=== PATIENT | female | born 1950 | race Caucasian/White ===

== ENCOUNTER 2017-05-19 14:13 | Emergency (ER) | payer MEDICARE ==
[~2017-05-19] VITALS: Ht 162.6 cm; Wt 54.0 kg
[~2017-05-19 14:13] MED LIST: Norco 5-325 Ta1 EACH PO
[2017-05-19] MEDS ORDERED: Norco 5-325 Ta1 EACH PO (15:04)
== END 2017-05-19 15:08 | disposition home or self-care (01) ==
LOC: ER 14:13
DX: S39.91XA Unspecified injury of abdomen, initial encounter (principal); Z87.891 Personal history of nicotine dependence; W01.0XXA Fall on same level from slipping, tripping and stumbling without subsequent striking against object, initial encounter
CPT/HCPCS: 72170; 99283

== ENCOUNTER 2021-04-20 13:01 | Day surgery (SDC) | payer MEDICARE ==
[~2021-04-20] VITALS: Ht 154.9 cm; Wt 58.6 kg
[2021-04-20] MEDS ORDERED: XARELTO20 MG PO (13:25)
[2021-04-20] MEDS ORDERED: METO50ER PO (13:25)
[2021-04-20] MEDS ORDERED: ALEN70 PO (13:26)
== END 2021-04-20 15:50 | disposition home or self-care (01) ==
LOC: ORSCSDS 13:01
PROVIDERS: Student in an Organized Health Care Education/Training Program
PROC: 0DBN8ZX Excision of Sigmoid Colon, Via Natural or Artificial Opening Endoscopic, Diagnostic (ICD-10-PCS; principal; 2021-04-20 14:15)
PROC: 0DBL8ZX Excision of Transverse Colon, Via Natural or Artificial Opening Endoscopic, Diagnostic (ICD-10-PCS; principal; 2021-04-20 14:15)
PROC: 0DBK8ZX Excision of Ascending Colon, Via Natural or Artificial Opening Endoscopic, Diagnostic (ICD-10-PCS; principal; 2021-04-20 14:15)
PROC: 0DBH8ZX Excision of Cecum, Via Natural or Artificial Opening Endoscopic, Diagnostic (ICD-10-PCS; principal; 2021-04-20 14:15)
PROC: 0DBP8ZX Excision of Rectum, Via Natural or Artificial Opening Endoscopic, Diagnostic (ICD-10-PCS; principal; 2021-04-20 14:15)
DX: R19.5 Other fecal abnormalities (principal); D12.0 Benign neoplasm of cecum; D12.3 Benign neoplasm of transverse colon; D12.2 Benign neoplasm of ascending colon; D12.5 Benign neoplasm of sigmoid colon; D12.8 Benign neoplasm of rectum; K57.30 Diverticulosis of large intestine without perforation or abscess without bleeding; Z79.899 Other long term (current) drug therapy; Z79.82 Long term (current) use of aspirin
CPT/HCPCS: 87426; 88305; C9803; J2405; J2704; J7120

== ENCOUNTER 2023-02-22 10:57 | Day surgery (SDC) | payer MEDICARE ==
[~2023-02-22] VITALS: Ht 154.9 cm; Wt 54.2 kg
[2023-02-22] VITALS (10 sets, daily range): BP systolic 98–165; BP diastolic 58–85
[~2023-02-22 10:57] MED LIST changes: +ALEN70 PO; +METO50ER PO; +METOPROLOL SUCC25 MG PO; +PROTONIX40 M2 PO; +Robaxin750 MG PO; +Roxicodone5 MG PO; +XARELTO20 M1 PO; +XARELTO20 MG PO
--- NOTE | 2023-02-22 11:20 | NUR ---
PT TO DAY SURGERY FOR RIGHT HIP REPLACEMENT. PLAN OF CARE DISCUSSED. PT HERE WITH AT BEDSIDE.
--- NOTE | 2023-02-22 13:41 | NUR ---
PRE-OP NOTE SBAR FROM KARL REHMAN. PT USED BEDSIDE COMMODE C ASSISTANCE, ABLE TO URINATE AT 12:40. PT AT BEDSIDE. GLASSES TO PACU, BELONGINGS STOWED BELOW STRETCHER.Patient confirms NPO status and agrees with scheduled surgery.PT UNABLE TO TOLERATE AMBULATION 2/2 R HIP PAIN. Pre-Op teaching done. Pt verbalizes understanding.PT USES WALKER/WHEELCHAIR AT HOME.
--- NOTE | 2023-02-22 17:20 | NUR ---
ARRIVAL TO SURGICAL UNIT ALERT, ORIENTED, & PLEASANT. ASSESSMENT CHARTED. FAMILY AT BEDSIDE. DENIES N/V. ICE WATER & SNACKS GIVEN. DUE TO SPINAL UNABLE TO WIGGLE TOES.
[2023-02-23 00:02] VITALS: BP 120/72
[2023-02-23 04:03] VITALS: BP 118/67
[2023-02-23 05:20] LABS: BASOPHILS ABSOLUTE AUTO 0.01 K/mm3 (0.00-0.23); BASOPHILS PERCENT AUTO 0 % (0-2); EOSINOPHILS PERCENT AUTO 0 % (0-6); Hematocrit 29.5 % (33.0-51.0); Hemoglobin 9.9 g/dL (11.5-16.0); IMMATURE GRAN ABSOLUTE AUTO 0.03 K/mm3 (0.00-0.10); IMMATURE GRAN PERCENT AUTO 0 % (0-1); LYMPHOCYTES ABSOLUTE AUTO 0.38 K/mm3 (0.84-5.20); LYMPHOCYTES PERCENT AUTO 4 % (21-46); MONOCYTES ABSOLUTE AUTO 0.57 K/mm3 (0.16-1.47); MONOCYTES PERCENT AUTO 6 % (4-13); Mean Corpuscular HGB 31.9 pg (26.0-34.0); Mean Corpuscular HGB Conc 33.6 g/dL (31.5-36.5); Mean Corpuscular Volume 95 fL (80-100); Mean Platelet Volume 8.7 fL (9.1-12.4); NEUTROPHILS ABSOLUTE AUTO 8.45 K/mm3 (1.96-9.15); NEUTROPHILS PERCENT AUTO 90 % (41-73); Platelet Count 307 K/mm3 (150-400); RDW Coefficient Variation 13.2 % (11.7-14.2); White Blood Cell Count 9.44 K/mm3 (4.00-11.30)
[2023-02-23 05:43] LABS: Bun/Creatinine Ratio 19.2 (12.0-20.0); Calcium, Blood 8.7 mg/dL (8.5-10.1); Creatinine, Blood 0.68 mg/dL (0.40-1.00); Magnesium, Blood 1.9 mg/dL (1.6-2.4); Potassium, Blood 4.4 mmol/L (3.5-5.5)
[2023-02-23 07:29] VITALS: BP 117/68
--- NOTE | 2023-02-23 07:41 | NUR ---
POD 1 S/P R AKSHAT. PT VSS T/O NIGHT. DRESSING CDI, CHANGED MY DR KNIGHT THIS AM. PULSES AND CAP REFILL WNL, N/T RESOLVED. PAIN MGD PER EMAR W/REP RELIEF. PT MARYANNE PO, IS VOIDING URINE W/O DIFFICULTY. PT UP OOB W/FWW+1 ASSIST. PLAN TO MOBILIZE W/PT AND DC HOME WHEN CLEARED.
--- NOTE | 2023-02-23 11:36 | NUR ---
DISCHARGE SUMMARY POD1 R POSTERIOR AKSHAT, A/OX4, VSS, TOLERATING PO, PAIN WELL MANAGED, AMBULATING WELL WITH FWW/GB, INCISION DRESSINGS CHANGED THIS MORNING JUST BEFORE SHIFT CHANGE BY SURGEON, AQUACELLS PLACED X2 WHICH ARE STILL C/D/I, PROVIDED HER WITH 3 EXTRA DRESSINGS FOR EACH SPOT FOR CHANGING BETWEEN NOW AND HER FOLLOW UP. NO SWELLING NOTED AROUND HER DRESSINGS, CIRCULATION DISTAL RLE INTACT WITH STRONG PULSE AT DORSALIS PEDIS, GRADUATED COMPRESSION STOCKINGS IN PLACE BLE. DISCUSSED DISCHARGE INSTRUCTIONS WITH HER AND HER INCLUDING HOME CARE, MEDICATIONS, AND FOLLOW UP APPOINTMENTS. IV ACCESS REMOVED PRIOR TO DC. PT ESCORTED OUT VIA WC TO PRIVATE AUTO TO GO HOME.
--- NOTE | 2023-02-23 14:33 | NUR ---
02/23/23 1433 Kaley Cabrera VERIFICATIONS: EDIT CHART.
== END 2023-02-23 11:18 | disposition home or self-care (01) ==
LOC: ORSCMMR 10:57 → ORD 14:30 → ORSCMMR 14:30 → SURS 16:56 → ORSCMMR 02-23 11:18
PROVIDERS: Orthopaedic Surgery
PROC: 0LQJ0ZZ Repair Right Hip Tendon, Open Approach (ICD-10-PCS; principal; 2023-02-22 14:30)
PROC: 0SR90JA Replacement of Right Hip Joint with Synthetic Substitute, Uncemented, Open Approach (ICD-10-PCS; principal; 2023-02-22 14:30)
DX: M16.11 Unilateral primary osteoarthritis, right hip (principal); M87.9 Osteonecrosis, unspecified; S76.011A Strain of muscle, fascia and tendon of right hip, initial encounter; I48.92 Unspecified atrial flutter; Z79.01 Long term (current) use of anticoagulants; E78.5 Hyperlipidemia, unspecified; Z79.899 Other long term (current) drug therapy
CPT/HCPCS: 36415; 72170; 80048; 83735; 85025; 88304; 88311; 97110; 97116; 97162; 97165; 97535; A9270; C1713; C1776; J0171; J0690; J0735; J1100; J1885; J2371; J2405; J2704; J2795; J3010; J3370; J7120

== ENCOUNTER 2024-12-04 16:33 | Inpatient (IN) | payer OTHER ==
[~2024-12-04] VITALS: Ht 165.1 cm; Wt 60.2 kg
[~2024-12-04 16:33] MED LIST changes: -BACLOFEN5 M1 PO; -FURO40 PO; -PEPCID20 MG PO; -POTA20LUD PO
[2024-12-04 17:16] LABS: BASOPHILS ABSOLUTE AUTO 0.02 K/mm3 (0.00-0.23); BASOPHILS PERCENT AUTO 0 % (0-2); EOSINOPHILS ABSOLUTE AUTO 0.01 K/mm3 (0.00-0.68); EOSINOPHILS PERCENT AUTO 0 % (0-6); Hematocrit 27.2 % (33.0-51.0); Hemoglobin 9.5 g/dL (11.5-16.0); IMMATURE GRAN ABSOLUTE AUTO 0.02 K/mm3 (0.00-0.10); IMMATURE GRAN PERCENT AUTO 0 % (0-1); LYMPHOCYTES ABSOLUTE AUTO 0.55 K/mm3 (0.84-5.20); LYMPHOCYTES PERCENT AUTO 8 % (21-46); MONOCYTES ABSOLUTE AUTO 0.65 K/mm3 (0.16-1.47); MONOCYTES PERCENT AUTO 10 % (4-13); Mean Corpuscular HGB Conc 34.9 g/dL (31.5-36.5); Mean Corpuscular Volume 99 fL (80-100); NEUTROPHILS ABSOLUTE AUTO 5.26 K/mm3 (1.96-9.15); NEUTROPHILS PERCENT AUTO 81 % (41-73); NRBC ABSOLUTE 0.00 K/mm3 (0.00-0.02); NRBC Auto 0.0 /100 WBC (0.0-0.2); Platelet Count 189 K/mm3 (150-400); RDW Coefficient Variation 13.3 % (11.7-14.2); RDW Standard Deviation 46.8 fL (35.1-46.3)
[2024-12-04 18:01] LABS: Alanine Aminotransfer (ALT/SGP 40.0 U/L (12-78); Albumin, Blood 3.6 g/dL (3.4-5.0); Albumin/Globulin Ratio 1.4 (0.8-1.8); Anion Gap 8.0 mmol/L (3-11); Aspartate Aminotrans (AST/SGOT 76.0 U/L (12-37); Bilirubin, Total 1.3 mg/dL (0.1-1.0); Blood Urea Nitrogen 14.0 mg/dL (8-24); CO2, Blood 24.0 mmol/L (21-32); Calcium, Blood 8.8 mg/dL (8.5-10.1); Chloride, Blood 88.0 mmol/L (98-108); Creatinine, Blood 0.56 mg/dL (0.40-1.00); Globulin, Blood 2.6 g/dL (2.2-4.0); Glucose, Blood 124.0 mg/dL (70-99); Potassium, Blood 4.2 mmol/L (3.5-5.5); Sodium, Blood 116.0 mmol/L (136-145); Total Protein, Blood 6.2 g/dL (6.4-8.2)
[2024-12-04] MEDS ORDERED: Morphine Sulfate 4 MG/1 ML Injection IV ONE ×2 (18:15→19:40)
[2024-12-04] MEDS ORDERED: Ondansetron HCl 2 MG / ML 2ML Vial IV PRN (20:45)
[2024-12-04] MEDS ORDERED: Metoprolol Tartrate 1 MG/ML 5 ML VIAL IV PRN (20:55)
[2024-12-04 21:32] LABS: Osmolality, Serum 256.0 mos/KG (275-300)
[2024-12-04 21:38] LABS: Thyroid Stimulating Hormone 6.82 uIU/mL (0.360-4.800)
[2024-12-04 22:00] VITALS: BP 128/98
--- NOTE | 2024-12-04 22:00 | NUR ---
PT ARRIVED FROM ED VIA GURNEY IN NO APPARENT DISTRESS. TRANSFERRED TO ICU 6 BED WITHOUT INCIDENT. HYPERTONIC SALINE INFUSING AT 25ML/HR WHICH WAS STOPPED AT 2250 AFTER A SODIUM LEVEL OF 21 CAME BACK. SALINE LOCKED AFTER. PT IS ALERT AND ORIENTED TO ALL AND MOVES ALL EXTREMITIES, THOUGH WITH PAIN IN LEFT LEG, WHICH SHOWS A MASSIVE HEMATOMA FROM ANKLE TO JUST ABOVE THE KNEE. PT C/O LEG CRAMPING, WHICH HAS BEEN A WORSENING ISSUE FOR OVER A MONTH. 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 PT RESPONDED WELL TO MORPHINE IN THE ED AND PROVIDER CALLED AND ORDER PLACED FOR PRN MORPHINE. PT IN A FIB, RATE 90-110 WITH STABLE BP. RESPIRATION REGULAR AND WITHOUT EXTRA EFFORT. ON RA PT PRODUCING > 92% O2 SAT. WHEN ASLEEP, PT DESATURATES INTO 80'S AND SO PT STARTED ON 2L NC. PT DENIES CHEST PAIN/PRESSURE, SOB, AB PAIN, N/V, NUMBNESS/TINGLING. PT URINATED INTO BRIEF AFTER BEING INITIALLY CONFUSED BUT PUREWICK, BUT PUREWICK PLACED AFTER THIS. WILL CONTINUE TO MONITOR SODIUM LEVELS WITH Q 3 HOUR DRAWS.
[2024-12-04 22:04] LABS: Influenza A, PCR NEGATIVE (NEGATIVE); Influenza B, PCR NEGATIVE (NEGATIVE); Resp Syncytial Virus, PCR NEGATIVE (NEGATIVE); SARS-Cov-2 (COVID-19) PCR, MMC NEGATIVE (NEGATIVE)
[2024-12-04] MEDS ORDERED: Morphine Sulfate 4 MG/1 ML Injection IV PRN (23:05)
--- NOTE | 2024-12-04 23:08 | NUR ---
CALL TO HOSPITALIST DARRICK DANIEL REGARDING CRAMPING TO LEGS. REVIEWED NA LEVEL. ORDERS FOR MORPHINE AND TO STOP 3% SALINE RECEIVED.
[2024-12-05] VITALS (19 sets, daily range): BP systolic 70–131; BP diastolic 51–103
[2024-12-05 03:28] LABS: BASOPHILS ABSOLUTE AUTO 0.01 K/mm3 (0.00-0.23); BASOPHILS PERCENT AUTO 0 % (0-2); EOSINOPHILS ABSOLUTE AUTO 0.02 K/mm3 (0.00-0.68); EOSINOPHILS PERCENT AUTO 0 % (0-6); Hematocrit 24.5 % (33.0-51.0); Hemoglobin 8.6 g/dL (11.5-16.0); IMMATURE GRAN ABSOLUTE AUTO 0.01 K/mm3 (0.00-0.10); IMMATURE GRAN PERCENT AUTO 0 % (0-1); LYMPHOCYTES ABSOLUTE AUTO 0.54 K/mm3 (0.84-5.20); LYMPHOCYTES PERCENT AUTO 9 % (21-46); MONOCYTES ABSOLUTE AUTO 0.45 K/mm3 (0.16-1.47); MONOCYTES PERCENT AUTO 7 % (4-13); Mean Corpuscular HGB Conc 35.1 g/dL (31.5-36.5); Mean Corpuscular Volume 98 fL (80-100); NEUTROPHILS ABSOLUTE AUTO 5.15 K/mm3 (1.96-9.15); NEUTROPHILS PERCENT AUTO 83 % (41-73); NRBC ABSOLUTE 0.00 K/mm3 (0.00-0.02); NRBC Auto 0.0 /100 WBC (0.0-0.2); Platelet Count 184 K/mm3 (150-400); RDW Coefficient Variation 13.4 % (11.7-14.2); RDW Standard Deviation 47.6 fL (35.1-46.3)
[2024-12-05 07:07] LABS: Anion Gap 13.0 mmol/L (3-11); Blood Urea Nitrogen 10.0 mg/dL (8-24); CO2, Blood 22.0 mmol/L (21-32); Calcium, Blood 7.4 mg/dL (8.5-10.1); Chloride, Blood 89.0 mmol/L (98-108); Creatinine, Blood 0.5 mg/dL (0.40-1.00); Glucose, Blood 103.0 mg/dL (70-99); Potassium, Blood 3.3 mmol/L (3.5-5.5); Sodium, Blood 121.0 mmol/L (136-145)
--- NOTE | 2024-12-05 08:09 | NUR ---
SHIFT SUMMARY PT LYING IN BED ALERT AND ORIENTED. PT CANNOT SEE WELL SINCE CONTACTS ARE OUT; DOES NOT WANT HELP REINSERTING THEM. AFEBRILE. LEG CRAMPS ARE BETTER, MILD AT THIS TIME. 1 DOSE OF MORPHINE GIVEN EARLY IN SHIFT. PT REMAINED IN CONTROLLED RATE A FIB, RATE 90-105, WITH STABLE BP. PT STARTED ON RA WITH > 92% UPON ADMISSION AND STARTED ON 2L WHEN SHE DESATURATED TO MID 80'S AFTER PAIN MED ADMINISTRATION/START OF SLEEP. PT DENIED CHEST PAIN/PRESSURE, SOB, AB PAIN, N/V AND CONTINUES TO AT THIS TIME. PUREWICK IN PLACE TO SUCTION WITH 1200ML OUTPUT PLUS ONE SOILED BRIEF. PT IS SALINE LOCKED. ANTI-EMBOLIC STOCKINGS ARE IN PLACE. BEDSIDE SHIFT REPORT GIVEN TO ONCOMING RN.
[2024-12-05] MEDS ORDERED: CefTRIAXone Sodium 1,000 MG in NS 100 ML IV SCH (10:00)
[2024-12-05 11:00] LABS: Source, Urine Voided
[2024-12-05 11:18] LABS: Bilirubin, Urine Neg (Neg); Color, Urine Yellow (P-Yellow); Glucose Qualitative, Urine Neg (Neg); Ketones, Urine Neg (Neg); Leukocyte Esterase, Urine 3+ (Neg); Protein, Urine 2+ (Neg); Specific Gravity, Urine 1.010 (1.003-1.022); Urobilinogen, Urine NORM (Normal)
[2024-12-05 11:34] LABS: Red Blood Cells, Urine 50-100 /hpf (0-2); White Blood Cells, Urine 25-50 /hpf (0-5)
[2024-12-05 12:20] LABS: Sodium, Urine, Random 77 mmol/L (20-110)
[2024-12-05 12:48] LABS: Osmolality, Urine 375 mos/kg (15-1400)
[2024-12-05 13:39] LABS: Anion Gap 11.0 mmol/L (3-11); Blood Urea Nitrogen 10.0 mg/dL (8-24); CO2, Blood 27.0 mmol/L (21-32); Calcium, Blood 8.0 mg/dL (8.5-10.1); Chloride, Blood 87.0 mmol/L (98-108); Creatinine, Blood 0.56 mg/dL (0.40-1.00); Glucose, Blood 119.0 mg/dL (70-99); Magnesium, Blood 1.8 mg/dL (1.6-2.4); Potassium, Blood 3.3 mmol/L (3.5-5.5); Sodium, Blood 122.0 mmol/L (136-145)
[2024-12-05 16:10] LABS: Anion Gap 11.0 mmol/L (3-11); Blood Urea Nitrogen 10.0 mg/dL (8-24); CO2, Blood 25.0 mmol/L (21-32); Calcium, Blood 7.9 mg/dL (8.5-10.1); Chloride, Blood 89.0 mmol/L (98-108); Creatinine, Blood 0.59 mg/dL (0.40-1.00); Glucose, Blood 114.0 mg/dL (70-99); Potassium, Blood 3.6 mmol/L (3.5-5.5); Sodium, Blood 121.0 mmol/L (136-145)
[2024-12-05] MEDS ORDERED: Misc. Tablet PO PRN (17:10)
--- NOTE | 2024-12-05 19:00 | NUR ---
SHIFT SUMMARY NEURO: ALERT AND ORIENTED X 4. ABLE TO MAKE HER NEEDS KNOWN. SOME DROWSINESS THIS AM AND AFTERNOON THAT HAS RESOLVED. DENIES ANY RODAS OR DIZZINESS CARDIAC: SR HR 70-90S. SBP: 90-110S. EDEMA PRESENT TO BLE. ECHO COMPELTED TODAY. PULM: LUNGS CLEAR TO AUSCULATION, SPO2 100% ON RA. GI: ABDOMEN IS SOFT, NON TENDER. NORMOACTIVE BOWEL TONES. : PUREWICK IN PLACE, GOOD UOP WITH DIURESIS. +FREQUENCY DENIES DYSURIA. 1 DOSE ROCEPHIN TODAY.
[2024-12-05 20:12] LABS: Anion Gap 10.0 mmol/L (3-11); Blood Urea Nitrogen 11.0 mg/dL (8-24); CO2, Blood 26.0 mmol/L (21-32); Calcium, Blood 8.1 mg/dL (8.5-10.1); Chloride, Blood 90.0 mmol/L (98-108); Creatinine, Blood 0.62 mg/dL (0.40-1.00); Glucose, Blood 135.0 mg/dL (70-99); Potassium, Blood 3.9 mmol/L (3.5-5.5); Sodium, Blood 122.0 mmol/L (136-145)
[2024-12-06] VITALS (35 sets, daily range): BP systolic 80–122; BP diastolic 52–90
[2024-12-06 04:14] LABS: Ferritin, Serum 109.0 ng/mL (8-252); Total Iron Binding Capacity 315.0 ug/dL (250-450)
[2024-12-06 04:19] LABS: Anion Gap 10.0 mmol/L (3-11); Blood Urea Nitrogen 12.0 mg/dL (8-24); CO2, Blood 27.0 mmol/L (21-32); Calcium, Blood 7.6 mg/dL (8.5-10.1); Chloride, Blood 91.0 mmol/L (98-108); Creatinine, Blood 0.7 mg/dL (0.40-1.00); Glucose, Blood 130.0 mg/dL (70-99); Potassium, Blood 3.8 mmol/L (3.5-5.5); Sodium, Blood 124.0 mmol/L (136-145)
--- NOTE | 2024-12-06 08:08 | NUR ---
SHIFT SUMMARY PT HAD UNEVENTFUL NIGHT. STARTED NIGHT ALERT AND ORIENTED BUT ENDED THE SHIFT MILDLY CONFUSED, THOUGH SHE WAS AWOKEN AND MOVED SUDDENLY DUE TO STAFFING ARRANGEMENTS. PT C/O LEG CRAMPING THROUGHOUT SHIFT THOUGH MORPHINE HELPED- ONE DOSE GIVEN ALL SHIFT. PT REMAINED IN CONTROLLED A FIB 80-100 RATE AND BP WAS STABLE TO SOFT FOR THE FIRST TIME SINCE ADMISSION. THIS RN NEVER FELT THE NEED TO ADDRESS THE BP AND THE MAP INCREASED QUICKLY UPON AWAKENING. PT O2 SATURATIONS REMAINED ABOVE 90% ALL SHIFT ON RA. PT DID NOT HAVE BM. PUREWICK WAS IN PLACE THOUGH OUTPUT WAS 120ML. PT DENIED CHEST PAIN/PRESSURE, SOB, AB PAIN, N/V THROUGHOUT SHIFT. BEDISIDE SHIFT REPORT GIVEN TO DAY RN. AFTER HANDING OVER PT, SON-IN-LAW PÉREZ CALLED THE UNIT AND THIS RN SPOKE WITH HIM, GIVING AN UPDATE AND INFORMING HIM OF THE PT'S MOVE TO A DIFFERENT ROOM IN THE UNIT. HE SAID HE WOULD INFORM THE PT'S .
--- NOTE | 2024-12-06 10:34 | NUR ---
Pt. is awake in bed and welcomes my visit. Pt. is pleasant. Spouse is at bedside. Facilitated a life review and listened with empathy and a calming presence. Pt. and spouse verbalize about htis family and their naz[place] tradition. Pt. displays evidence of ocassional somnolence during the visit. Prayed for the Pt. Spouse verbalized gratitude for the spiritual care visit.
--- NOTE | 2024-12-06 18:03 | NUR ---
End of Shift Pt PCU status. A&O x4. BP soft, otherwise VSS. Spo2 > 92% on RA. Monitor showing afib, HR 90s-110s. Pt 1 person assist out of bed to chair. Pt w/ significant LLE bruising. Pt c/o leg cramping, medicated per emar w/ pt report of improvement. Purewick in place draining dark yellow urine. Family at bedside majority of shift.
--- NOTE | 2024-12-06 20:07 | NUR ---
PATIENT BP 94/66 (77) HR. 98 AIBB. REQUESTING PARAMETERS OF METOPROLOL. NEW PARAMETERS RECIEVED TO HOLD SYS <100. ALSO NOTE PER DR. NORIEGA NOTE: Q4 BMP AND DAILY CBC. LAST BMP AT 3 AM. WOULD WE LIKE A BMP? NEW ORDER FOR NA NOW AND REASSESS NEED FOLLOWING NA RESULT. READ BACK TO DR. HOLLINGSWORTH FOR VARIFICATION AND ORDERS PLACED.
--- NOTE | 2024-12-06 22:38 | NUR ---
PATIENT MOVED TO ROOM ICU 8. WILL NOTIFY FAMILY IN AM OF PATIENT NEW ROOM LOCATION PER PATIENT REQUEST. NO S/S OF DISTRESS OR DISCOMFORT NOTED UPON TRANSFER. SAFETY MAINTAINED.
--- NOTE | 2024-12-06 22:50 | NUR ---
NURSE HANDOFF: PATIENT ALERT AND ORIENT X4. RESTING IN BED ON ROOM AIR. PURWICK IN PLACE FOR URINE. PATIENT REQUESTED FOR TEDS TO BE OFF AT THIS TIME FOR A "BREAK". TOLERATING REGULAR DIET. CONTINUES AFIBB 80S-LOW 100S TO MONITOR. JELENA POWERGLIDE SL WITH BLOOD DRAWBACK. 20G TO RIGHT AC SL. SAFETY MAINTAINED THROUGHOUT SHIFT. NURSE HANDOFF TO ONCOMING NURSE TO TAKE OVER CARE AT THIS TIME.
--- NOTE | 2024-12-06 23:03 | NUR ---
ASSUMPTION OF CARE REPORT RECEIVED FROM GISELE BARAJAS. REVIEWED OUTSTANDING ISSUES AND PROBLEMS TO DATE. VSS
[2024-12-07] VITALS (21 sets, daily range): BP systolic 103–151; BP diastolic 57–114
--- NOTE | 2024-12-07 05:40 | NUR ---
SHIFT SUMMARY ASSUMED CARE OF PT 2300 LAST NIGHT. PT SLEEPING OFF/ON T/O NIGHT, RESTLESS AT TIMES, BACLOFEN GIVEN FOR LEG PAIN/RESTLESSNESS. WOKE AT ONE POINT DISORIENTED TO SURROUNDINGS, REORIENTED TO PLACE AND SITUATION. A-FIB CONTINUES 110'S TO 120'S, BP STABLE. 02 SAT >94% ON RA. WILL UPDATE DAY RN WITH OUTSTANDING ISSUES AND PROBLEMS TO DATE.
[2024-12-07 09:17] LABS: BASOPHILS ABSOLUTE AUTO 0.02 K/mm3 (0.00-0.23); BASOPHILS PERCENT AUTO 0 % (0-2); EOSINOPHILS ABSOLUTE AUTO 0.02 K/mm3 (0.00-0.68); EOSINOPHILS PERCENT AUTO 0 % (0-6); Hematocrit 28.1 % (33.0-51.0); Hemoglobin 9.5 g/dL (11.5-16.0); IMMATURE GRAN ABSOLUTE AUTO 0.02 K/mm3 (0.00-0.10); IMMATURE GRAN PERCENT AUTO 0 % (0-1); LYMPHOCYTES ABSOLUTE AUTO 0.39 K/mm3 (0.84-5.20); LYMPHOCYTES PERCENT AUTO 6 % (21-46); MONOCYTES ABSOLUTE AUTO 0.53 K/mm3 (0.16-1.47); MONOCYTES PERCENT AUTO 8 % (4-13); Mean Corpuscular HGB Conc 33.8 g/dL (31.5-36.5); NEUTROPHILS ABSOLUTE AUTO 5.49 K/mm3 (1.96-9.15); NEUTROPHILS PERCENT AUTO 85 % (41-73); NRBC ABSOLUTE 0.00 K/mm3 (0.00-0.02); NRBC Auto 0.0 /100 WBC (0.0-0.2); Platelet Count 269 K/mm3 (150-400); RDW Coefficient Variation 13.7 % (11.7-14.2); RDW Standard Deviation 51.1 fL (35.1-46.3)
[2024-12-07 09:24] LABS: Mean Corpuscular Volume 103 fL (80-100)
[2024-12-07 09:38] LABS: Alanine Aminotransfer (ALT/SGP 37.0 U/L (12-78); Albumin, Blood 3.4 g/dL (3.4-5.0); Albumin/Globulin Ratio 1.2 (0.8-1.8); Anion Gap 9.0 mmol/L (3-11); Aspartate Aminotrans (AST/SGOT 64.0 U/L (12-37); Bilirubin, Total 0.8 mg/dL (0.1-1.0); Blood Urea Nitrogen 9.0 mg/dL (8-24); CO2, Blood 28.0 mmol/L (21-32); Calcium, Blood 8.1 mg/dL (8.5-10.1); Chloride, Blood 95.0 mmol/L (98-108); Creatinine, Blood 0.58 mg/dL (0.40-1.00); Globulin, Blood 2.8 g/dL (2.2-4.0); Glucose, Blood 131.0 mg/dL (70-99); Potassium, Blood 4.6 mmol/L (3.5-5.5); Sodium, Blood 127.0 mmol/L (136-145); Total Protein, Blood 6.2 g/dL (6.4-8.2)
--- NOTE | 2024-12-07 17:32 | NUR ---
SHIFT SUMMARY PT HAS REMAINED DROWSEY AND CONFUSED THIS SHIFT. PT AWAKE AND ALERT FOR SHORT PERIODS OF TIME. PT ANSWERS SOME QUESTIONS APPROPRIATELY, PT SLOW TO RESPOND. PT UP TO BSC AND CHAIR MULTIPLE TIMES THIS SHIFT WITH 2 PERSON ASSIST. PT WITH SIGNIFICANT WEAKNESS WHEN OOB. PT ABLE TO TAKE PO INTAKE WELL. PG TO JELENA SALINE LOCKED. PUREWICK AND ATTENDS IN PLACE. PT WITH LARGE AMOUNT OF CLEAR YELLOW URINE OUTPUT THIS SHIFT. VITAL SIGNS REMAIN STABLE. MULTIPLE FAMILY MEMBERS IN AND OUT OF THE ROOM THROUGHOUT THE SHIFT. WILL CONTINUE TO MONITOR AND REPORT OFF TO ONCOMING RN.
[2024-12-07] MEDS ORDERED: Lactobacil 2-S.Thermo-Bifido 1 1 Cap PO SCH (21:00)
[2024-12-08] VITALS (14 sets, daily range): BP systolic 95–125; BP diastolic 66–98
[2024-12-08 03:51] LABS: BASOPHILS ABSOLUTE AUTO 0.04 K/mm3 (0.00-0.23); BASOPHILS PERCENT AUTO 1 % (0-2); EOSINOPHILS ABSOLUTE AUTO 0.08 K/mm3 (0.00-0.68); EOSINOPHILS PERCENT AUTO 2 % (0-6); Hematocrit 27.9 % (33.0-51.0); Hemoglobin 9.5 g/dL (11.5-16.0); IMMATURE GRAN ABSOLUTE AUTO 0.01 K/mm3 (0.00-0.10); IMMATURE GRAN PERCENT AUTO 0 % (0-1); LYMPHOCYTES ABSOLUTE AUTO 0.94 K/mm3 (0.84-5.20); LYMPHOCYTES PERCENT AUTO 18 % (21-46); MONOCYTES ABSOLUTE AUTO 0.63 K/mm3 (0.16-1.47); MONOCYTES PERCENT AUTO 12 % (4-13); Mean Corpuscular HGB Conc 34.1 g/dL (31.5-36.5); Mean Corpuscular Volume 102 fL (80-100); NEUTROPHILS ABSOLUTE AUTO 3.43 K/mm3 (1.96-9.15); NEUTROPHILS PERCENT AUTO 67 % (41-73); NRBC ABSOLUTE 0.00 K/mm3 (0.00-0.02); NRBC Auto 0.0 /100 WBC (0.0-0.2); Platelet Count 272 K/mm3 (150-400); RDW Coefficient Variation 14.0 % (11.7-14.2); RDW Standard Deviation 51.5 fL (35.1-46.3)
[2024-12-08 04:17] LABS: Alanine Aminotransfer (ALT/SGP 33.0 U/L (12-78); Albumin, Blood 3.1 g/dL (3.4-5.0); Albumin/Globulin Ratio 1.1 (0.8-1.8); Anion Gap 9.0 mmol/L (3-11); Aspartate Aminotrans (AST/SGOT 53.0 U/L (12-37); Bilirubin, Total 0.9 mg/dL (0.1-1.0); Blood Urea Nitrogen 13.0 mg/dL (8-24); CO2, Blood 29.0 mmol/L (21-32); Calcium, Blood 8.0 mg/dL (8.5-10.1); Chloride, Blood 97.0 mmol/L (98-108); Creatinine, Blood 0.62 mg/dL (0.40-1.00); Globulin, Blood 2.8 g/dL (2.2-4.0); Glucose, Blood 98.0 mg/dL (70-99); Potassium, Blood 4.0 mmol/L (3.5-5.5); Sodium, Blood 131.0 mmol/L (136-145); Total Protein, Blood 5.9 g/dL (6.4-8.2)
--- NOTE | 2024-12-08 06:07 | NUR ---
SHIFT SUMMARY PT OCCAS DISORIENTED TO SURROUNDINGS, REDIRECTABLE, COOP, FOLLOWS COMMANDS APPROP. RESTLESS BEGINNING OF NIGHT, MORPHINE GIVEN FOR LEG PAIN WITH GOOD RESULT. RESTING WITH EYES CLOSED AT THIS TIME. A-FIB CONTINUES, RATE 70'S-80'S. BP STABLE. O2SAT 97-98% ON RA T/O NIGHT. WILL UPDATE DAY RN WITH ANY OUTSTANDING ISSUES AND PROBLEMS TO DATE.
[2024-12-08] MEDS ORDERED: BACLOFEN5 M1 PO (11:33)
[2024-12-08] MEDS ORDERED: PEPCID20 MG PO (11:34)
[2024-12-08] MEDS ORDERED: FURO40 PO (11:37)
[2024-12-08] MEDS ORDERED: POTA20LUD PO (11:37)
--- NOTE | 2024-12-08 13:36 | NUR ---
SHIFT SUMMARY/DSICHARGE PT DISCHARGED THIS MORNING AROUND [address] ALAN ORDER. PT AND FAMILY HAVE BEEN EDUCATED ON DISCHARGE INFORMATION INCLUDING MEDICATION ADHERENCE AND FOLLOW UP WITH PRIMARY CARE PROVIDER.
== END 2024-12-08 14:58 | disposition home or self-care (01) | DRG 641 ==
LOC: ER 16:33 → ICUE 20:45
PROVIDERS: Family Medicine; Internal Medicine; Nurse Practitioner Acute Care; Student in an Organized Health Care Education/Training Program; ADMIT Internal Medicine
DX: E87.1 Hypo-osmolality and hyponatremia (principal); I48.20 Chronic atrial fibrillation, unspecified; N39.0 Urinary tract infection, site not specified; D62 Acute posthemorrhagic anemia; I48.91 Unspecified atrial fibrillation; K21.9 Gastro-esophageal reflux disease without esophagitis; S80.12XA Contusion of left lower leg, initial encounter; S09.90XA Unspecified injury of head, initial encounter; I50.9 Heart failure, unspecified; R29.6 Repeated falls; E78.5 Hyperlipidemia, unspecified; I83.892 Varicose veins of left lower extremity with other complications; M81.0 Age-related osteoporosis without current pathological fracture; R54 Age-related physical debility; D50.9 Iron deficiency anemia, unspecified; B96.20 Unspecified Escherichia coli [E. coli] as the cause of diseases classified elsewhere; Z96.641 Presence of right artificial hip joint; Z79.01 Long term (current) use of anticoagulants; Z98.890 Other specified postprocedural states; Z79.899 Other long term (current) drug therapy; W18.30XA Fall on same level, unspecified, initial encounter
CPT/HCPCS: 36415; 70450; 71045; 73701; 80048; 80053; 81001; 82533; 82607; 82728; 82746; 83540; 83550; 83735; 83880; 83930; 83935; 84295; 84300; 84443; 85025; 86850; 86900; 86901; 87077; 87086; 87186; 87637; 93005; 93010; 93306; 94762; 96374-59; 96376-59; 97116; 97162; 97530; 99285-25; A9270; C1751; J0696; J1938; J2270; Q9967

== ENCOUNTER → 2024-12-04 | Outpatient (CLI) | payer OTHER ==
[~2024-12-04] MED LIST changes: +BACLOFEN5 M1 PO; +FURO40 PO; +PEPCID20 MG PO; +POTA20LUD PO
[2024-12-04 15:29] LABS: BASOPHILS ABSOLUTE AUTO 0.01 K/mm3 (0.00-0.23); BASOPHILS PERCENT AUTO 0 % (0-2); EOSINOPHILS ABSOLUTE AUTO 0.01 K/mm3 (0.00-0.68); EOSINOPHILS PERCENT AUTO 0 % (0-6); Hematocrit 24.8 % (33.0-51.0); Hemoglobin 9.0 g/dL (11.5-16.0); IMMATURE GRAN ABSOLUTE AUTO 0.02 K/mm3 (0.00-0.10); IMMATURE GRAN PERCENT AUTO 0 % (0-1); LYMPHOCYTES ABSOLUTE AUTO 0.56 K/mm3 (0.84-5.20); LYMPHOCYTES PERCENT AUTO 9 % (21-46); MONOCYTES ABSOLUTE AUTO 0.72 K/mm3 (0.16-1.47); MONOCYTES PERCENT AUTO 11 % (4-13); Mean Corpuscular HGB Conc 36.3 g/dL (31.5-36.5); Mean Corpuscular Volume 95 fL (80-100); NEUTROPHILS ABSOLUTE AUTO 5.06 K/mm3 (1.96-9.15); NEUTROPHILS PERCENT AUTO 79 % (41-73); NRBC ABSOLUTE 0.00 K/mm3 (0.00-0.02); NRBC Auto 0.0 /100 WBC (0.0-0.2); Platelet Count 175 K/mm3 (150-400); RDW Coefficient Variation 12.9 % (11.7-14.2); RDW Standard Deviation 44.6 fL (35.1-46.3)
[2024-12-04 15:39] LABS: Alanine Aminotransfer (ALT/SGP 42.0 U/L (12-78); Albumin, Blood 3.5 g/dL (3.4-5.0); Albumin/Globulin Ratio 1.1 (0.8-1.8); Anion Gap 13.0 mmol/L (6-16); Aspartate Aminotrans (AST/SGOT 72.0 U/L (12-37); Bilirubin, Total 1.3 mg/dL (0.1-1.0); Blood Urea Nitrogen 14.0 mg/dL (8-24); CO2, Blood 25.0 mmol/L (21-32); Calcium, Blood 8.6 mg/dL (8.5-10.1); Chloride, Blood 86.0 mmol/L (98-108); Creatinine, Blood 0.74 mg/dL (0.40-1.00); Globulin, Blood 3.2 g/dL (2.2-4.0); Glucose, Blood 126.0 mg/dL (70-99); Potassium, Blood 4.6 mmol/L (3.5-5.5); Total Protein, Blood 6.7 g/dL (6.4-8.2)
[2024-12-04 15:40] LABS: Sodium, Blood 119.0 mmol/L (136-145)
== END | disposition home or self-care (01) ==
LOC: LAB 15:25 → LAB SHORT 15:25
PROVIDERS: Physician Assistant
DX: R53.83 Other fatigue (principal)
CPT/HCPCS: 80053; 85025

== ENCOUNTER → 2024-12-13 | Outpatient (CLI) | payer OTHER ==
[~2024-12-13] MED LIST changes: +BACLOFEN5 M1 PO; +FURO40 PO; +PEPCID20 MG PO; +POTA20LUD PO
[2024-12-13 16:22] LABS: Source, Urine Clean Catch
[2024-12-13 16:30] LABS: BASOPHILS ABSOLUTE AUTO 0.09 K/mm3 (0.00-0.23); BASOPHILS PERCENT AUTO 1 % (0-2); EOSINOPHILS ABSOLUTE AUTO 0.13 K/mm3 (0.00-0.68); EOSINOPHILS PERCENT AUTO 2 % (0-6); Hematocrit 33.9 % (33.0-51.0); Hemoglobin 11.1 g/dL (11.5-16.0); IMMATURE GRAN ABSOLUTE AUTO 0.02 K/mm3 (0.00-0.10); IMMATURE GRAN PERCENT AUTO 0 % (0-1); LYMPHOCYTES ABSOLUTE AUTO 0.85 K/mm3 (0.84-5.20); LYMPHOCYTES PERCENT AUTO 13 % (21-46); MONOCYTES ABSOLUTE AUTO 0.68 K/mm3 (0.16-1.47); MONOCYTES PERCENT AUTO 10 % (4-13); Mean Corpuscular HGB Conc 32.7 g/dL (31.5-36.5); Mean Corpuscular Volume 102 fL (80-100); NEUTROPHILS ABSOLUTE AUTO 4.74 K/mm3 (1.96-9.15); NEUTROPHILS PERCENT AUTO 73 % (41-73); NRBC ABSOLUTE 0.00 K/mm3 (0.00-0.02); NRBC Auto 0.0 /100 WBC (0.0-0.2); Platelet Count 410 K/mm3 (150-400); RDW Coefficient Variation 14.2 % (11.7-14.2); RDW Standard Deviation 52.0 fL (35.1-46.3)
[2024-12-13 16:51] LABS: Color, Urine Yellow (P-Yellow)
[2024-12-13 16:52] LABS: Bilirubin, Urine Neg (Neg); Glucose Qualitative, Urine Neg (Normal); Ketones, Urine Neg (Neg); Leukocyte Esterase, Urine Neg (Neg); Protein, Urine Neg (Neg); Specific Gravity, Urine 1.005 (1.003-1.022); Urobilinogen, Urine NORM (Normal)
[2024-12-13 17:10] LABS: Alanine Aminotransfer (ALT/SGP 34.0 U/L (12-78); Albumin, Blood 4.0 g/dL (3.4-5.0); Albumin/Globulin Ratio 1.1 (0.8-1.8); Anion Gap 12.0 mmol/L (6-16); Aspartate Aminotrans (AST/SGOT 42.0 U/L (12-37); Bilirubin, Total 0.7 mg/dL (0.1-1.0); Blood Urea Nitrogen 31.0 mg/dL (8-24); CO2, Blood 30.0 mmol/L (21-32); Calcium, Blood 9.8 mg/dL (8.5-10.1); Chloride, Blood 98.0 mmol/L (98-108); Creatinine, Blood 1.19 mg/dL (0.40-1.00); Globulin, Blood 3.5 g/dL (2.2-4.0); Glucose, Blood 90.0 mg/dL (70-99); Magnesium, Blood 2.3 mg/dL (1.6-2.4); Potassium, Blood 5.7 mmol/L (3.5-5.5); Sodium, Blood 134.0 mmol/L (136-145); Thyroid Stimulating Hormone 6.677 uIU/mL (0.360-4.800); Total Protein, Blood 7.5 g/dL (6.4-8.2)
[2024-12-13 18:43] LABS: Ferritin, Serum 174.0 ng/mL (8-252); Total Iron Binding Capacity 426.0 ug/dL (250-450)
== END | disposition home or self-care (01) ==
LOC: LAB SHORT 16:19 → LAB 16:19
PROVIDERS: Family Medicine
DX: I48.91 Unspecified atrial fibrillation (principal); D50.9 Iron deficiency anemia, unspecified; E87.1 Hypo-osmolality and hyponatremia; G47.62 Sleep related leg cramps
CPT/HCPCS: 36415; 80053; 81003; 82728; 83540; 83550; 83735; 84443; 85025